=== PATIENT | female | born 1980 | race Caucasian/White ===

== ENCOUNTER 2018-07-01 09:12 | Emergency (ER) | payer SELFPAY ==
[~2018-07-01] VITALS: Ht 167.6 cm; Wt 86.2 kg
[2018-07-01] MEDS ORDERED: IV NORMAL SALINE 1,000ML 1,000 ML IV SCH (09:33)
--- NOTE | 2018-07-01 09:44 | RAD ---
Left hand, 3 views, 07/01/2018: HISTORY: Pain No fracture or bony abnormality is detected. The soft tissues are unremarkable. IMPRESSION: No acute left hand abnormality is detected. Electronically signed by: Sin Holland MD (07/01/2018 9:40 AM) [facility]
[2018-07-01] MEDS ORDERED: ONDANSETRON PF 4 MG/2 ML VIAL. IV ONE (09:45)
[2018-07-01 10:01] LABS: BASO % 0 % (0-3); EOS # 0.2 x10^3/uL (0.0-0.7); EOS % 3 % (0-3); HEMATOCRIT 40.6 % (36.0-47.0); HEMOGLOBIN 13.9 g/dL (12.0-15.5); LYMPH # 1.2 x10^3/uL (1.0-4.8); LYMPH % 26 % (24-48); MEAN CORPUSCULAR HEMOGLOBIN 30 pg (25-35); MEAN CORPUSCULAR HGB CONC 34 g/dL (31-37); MEAN CORPUSCULAR VOLUME 89 fL (79-100); MONO # 0.3 x10^3/uL (0.0-1.1); MONO % 6 % (0-9); NEUT % 65 % (31-73); PLATELET COUNT 274 x10^3/uL (140-400); RED BLOOD COUNT 4.58 x10^6/uL (3.50-5.40); RED CELL DISTRIBUTION WIDTH 12.8 % (11.5-14.5); WHITE BLOOD COUNT 4.7 x10^3/uL (4.0-11.0)
[2018-07-01 10:07] LABS: BACTERIA,URINE 0 /HPF (0-FEW); BILIRUBIN,URINE NEG (NEG); CLARITY,URINE CLEAR; COLOR,URINE YELLOW; GLUCOSE,URINE NEG (NEG); NITRITE,URINE NEG (NEG); RBC,URINE 0 /HPF (0-2); SQUAMOUS EPITHELIAL CELL,UR FEW /LPF; U PREG PATIENT NEGATIVE (NEG); UROBILINOGEN,URINE 0.2 mg/dL (0.2 mg/dL); WBC,URINE 0 /HPF (0-4)
--- NOTE | 2018-07-01 10:12 | PHYS DOC ---
Past History Past Medical History: Hypertension Past Surgical History: Appendectomy, Hysterectomy, Tonsillectomy Alcohol Use: None Drug Use: None Adult General Chief Complaint Chief Complaint: HAND PROBLEM HPI HPI Patient is a 38 year old female who presents with complaint of left hand pain. Patient states that she started noticing pain along the medial aspect of the left hand on the palmar side starting last night. Patient states when she woke this morning she has had severe pain in this area. Patient states that she is unable to extend her fingers especially at the ring finger and small finger secondary to pain in the palm of her hand. Patient has also noticed soft tissue swelling in this area. Patient denies history of similar symptoms. Patient denies any recent trauma or penetrating injury to the hand. Patient's had no associated fever. Patient rates pain currently is 10 out of 10. Patient has not taken any medication for her symptoms at this time. Review of Systems Review of Systems Constitutional: Denies fever or chills [] Eyes: Denies change in visual acuity, redness, or eye pain [] HENT: Denies nasal congestion or sore throat [] Respiratory: Denies cough or shortness of breath [] Cardiovascular: Denies chest pain or edema[] GI: Denies abdominal pain, nausea, vomiting, bloody stools or diarrhea [] : Denies dysuria or hematuria [] Musculoskeletal: Left hand pain[] Integument: Denies rash or skin lesions [] Neurologic: Denies headache, focal weakness or sensory changes [] All other systems were reviewed and found to be within normal limits, except as documented in this note. Current Medications Current Medications Current Medications Medications (Trade) Dose Ordered Sig/Rosibel Start Time Stop Time Status Last Admin Dose Admin Fentanyl Citrate (Fentanyl 2ml Vial) 50 mcg PRN Q15MIN PRN 07/01/18 09:45 07/02/18 09:44 UNV 07/01/18 09:57 50 MCG Ondansetron HCl (Zofran) 4 mg 1X ONCE 07/01/18 09:45 07/01/18 09:46 UNV 07/01/18 09:57 4 MG Sodium Chloride 1,000 ml @ 125 mls/hr Q8H 07/01/18 09:33 07/01/18 17:32 UNV 07/01/18 09:56 125 MLS/HR Allergies Allergies No known drug allergies Physical Exam Physical Exam Constitutional: Alert, afebrile, appears in moderate to severe discomfort. [] HENT: Normocephalic, atraumatic, bilateral external ears normal, oropharynx moist, no oral exudates, nose normal. [] Eyes: PERRLA, EOMI, conjunctiva normal, no discharge. [] Neck: Normal range of motion, no tenderness, supple, no stridor. [] Cardiovascular:Heart rate regular rhythm, no murmur [] Lungs & Thorax: Bilateral breath sounds clear to auscultation [] Abdomen: Bowel sounds normal, soft, no tenderness, no masses, no pulsatile masses. [] Skin: Warm, dry, no erythema, no rash. [] Back: No tenderness, no CVA tenderness. [] Extremities: Left hand non-erythematous, mild to moderate soft tissue swelling of digits of left hand, fingers of left hand held partially flexed, pain with passive range of motion, tenderness along the flexor tendons. [] Neurologic: Alert and oriented X 3, normal motor function, normal sensory function, no focal deficits noted. [] Current Patient Data Vital Signs Vital Signs Date Time Temp Pulse Resp B/P (MAP) Pulse Ox O2 Delivery O2 Flow Rate FiO2 07/01/18 09:57 22 98 Room Air 07/01/18 09:15 98.9 61 Lab Results Laboratory Tests Test 07/01/18 09:44 White Blood Count 4.7 x10^3/uL (4.0-11.0) Red Blood Count 4.58 x10^6/uL (3.50-5.40) Hemoglobin 13.9 g/dL (12.0-15.5) Hematocrit 40.6 % (36.0-47.0) Mean Corpuscular Volume 89 fL (79-100) Mean Corpuscular Hemoglobin 30 pg (25-35) Mean Corpuscular Hemoglobin Concent 34 g/dL (31-37) Red Cell Distribution Width 12.8 % (11.5-14.5) Platelet Count 274 x10^3/uL (140-400) Neutrophils (%) (Auto) 65 % (31-73) Lymphocytes (%) (Auto) 26 % (24-48) Monocytes (%) (Auto) 6 % (0-9) Eosinophils (%) (Auto) 3 % (0-3) Basophils (%) (Auto) 0 % (0-3) Neutrophils # (Auto) 3.0 x10^3uL (1.8-7.7) Lymphocytes # (Auto) 1.2 x10^3/uL (1.0-4.8) Monocytes # (Auto) 0.3 x10^3/uL (0.0-1.1) Eosinophils # (Auto) 0.2 x10^3/uL (0.0-0.7) Basophils # (Auto) 0.0 x10^3/uL (0.0-0.2) Erythrocyte Sedimentation Rate Pending EKG EKG Not performed[] Radiology/Procedures Radiology/[place] [address] IMAGING REPORT Signed PATIENT: JESENIA ONTIVEROS ACCOUNT: [id number] : 1980 LOCATION: ER AGE: 38 SEX: F EXAM STATUS: REG ER ORD. PHYSICIAN: JAYESH DAVID MD REASON: left hand pain PROCEDURE: HAND LEFT 3V Left hand, 3 views, 07/01/2018: HISTORY: Pain No fracture or bony abnormality is detected. The soft tissues are unremarkable. IMPRESSION: No acute left hand abnormality is detected. Electronically signed by: Sin Holland MD (07/01/2018 9:40 AM) [facility] DICTATED AND SIGNED BY: SIN HOLLAND MD DATE: 07/01/18 0939 CC: JAYESH DAVID MD; NON,STAFF ~ [] Course & Med Decision Making Course & Med Decision Making Pertinent Labs and Imaging studies reviewed. (See chart for details) Patient was given IV fentanyl, Zofran, and started on IV fluids in the emergency department. The patient's exam shows Kanavel's signs of tenosynovitis. I contacted the transfer service for [facility] and spoke with Mari, a nurse for Dr. Villalta, hand surgeon. After communicating findings on exam, she recommended that the patient be sent as an ED to ED transfer to [facility] where she is currently performing surgery. I spoke with Dr. Bonner, ED physician at [facility], who accepted transfer of patient. The patient will be transferred by private vehicle. Informed patient of necessity to go immediately to the emergency department at [facility] for further evaluation. Per request, the patient was started on IV Solu-Medrol 100 mg prior to discharge. Dragon Disclaimer Dragon Disclaimer This electronic medical record was generated, in whole or in part, using a voice recognition dictation system. Departure Departure: Impression: Primary Impression: Left hand pain Disposition: XFER SHT-TRM HOSP Condition: STABLE Referrals: NON,STAFF (PCP) Additional Instructions: You must travel to [facility] emergency department immediately upon leaving the emergency department here at [facility] as she will need further evaluation and likely hand surgeon consultation to evaluate your left hand pain. JAYESH DAVID MD Jul 01, 2018 10:12
[2018-07-01 10:13] LABS: C REACTIVE PROTEIN 8.7 mg/L (0-3.3); CALCIUM 9.1 mg/dL (8.5-10.1); CREATININE 0.6 mg/dL (0.6-1.0); GFR 112.5
[2018-07-01 11:06] LABS: SEDIMENTATION RATE 14 (0-25)
[2018-07-01] MEDS ORDERED: methylPREDNISolone SOD SUCC PF 125 MG/2 ML VIAL. IV ONE (11:30)
[2018-07-01 12:50] VITALS: BP 148/87
== END 2018-07-01 11:50 | disposition short-term general hospital (02) ==
LOC: ER 09:12
DX: M79.642 Pain in left hand (principal); M79.645 Pain in left finger(s); R22.32 Localized swelling, mass and lump, left upper limb; I10 Essential (primary) hypertension
CPT/HCPCS: 36415; 73130; 80048; 81001; 81025; 85025; 85651; 86140; 96374; 96375; 96376; 99285; J2405; J3010; J7030